=== PATIENT | male | born 1935 | race Caucasian/White ===

== ENCOUNTER → 2019-12-10 13:07 | Outpatient (CLI) | payer MEDICARE, OTHER | END | disposition home or self-care (01) | LOC: D.MRI 12-09 14:30 → D.US 14:00 → D.MRI 14:00 | PROVIDERS: ATTEND Family Medicine | DX: M50.020 Cervical disc disorder with myelopathy, mid-cervical region, unspecified level (principal); N19 Unspecified kidney failure ==